=== PATIENT | male | born 1985 | race Caucasian/White ===

== ENCOUNTER 2016-05-15 16:17 | Emergency (ER) | payer OTHER ==
[~2016-05-15 16:17] MED LIST: TRAM50TA2 PO
[2016-05-15 16:19] VITALS: BP 117/75; PULSE 101; RESP 18; O2SAT 99
--- NOTE | 2016-05-15 16:28 | ED.REPORT ---
HPI-Back Pain Under 40 Date of Service May 15, 2016 ED Provider: Armando Sahu MD Pt is a 31 y/o male presenting to the ED c/o lumbar back pain without radiation onset today. He states he has prior L2-L3 back issues caused primarily by an old football injury which have caused him pain in the past although he has not had an MRI performed. 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 He denies any traumatic injury. Pt denies bowel or bladder incontinence, weakness or numbness of his legs, fever. He is requesting an x-ray at this time. Nursing Notes Stated Complaint: LOW BACK PAIN Chief Complaint: Back Pain or Injury Nursing Notes Reviewed: Yes Allergies: Coded Allergies: coconut (Verified Allergy, Severe, Anaphylaxis, 05/15/16) Scheduled PRN Cyclobenzaprine (Cyclobenzaprine) 5 Mg Tablet 5 MG PO HS PRN PRN Spasm Hydrocodone-Acetaminophen 5-325 mg (Hydrocodone-Acetaminophen 5-325 mg) 1 Each Tablet 1 TABLET PO Q4H PRN PRN For Pain Ibuprofen (Ibuprofen) 800 Mg Tablet 800 MG PO TID PRN PRN For Pain Tramadol (Tramadol) 50 Mg Tablet 50 MG PO QID PRN PRN For Pain General Time Seen by MD: 16:24 Chief Complaint Lumbar pain Hx Obtained From: Patient Arrived By: Walk-in Sudden in Onset?: No Onset Occurred: 5 - 8 hours ago Symptom Duration: Since onset Caused by: Aggravated old injury Location: : Perispinal lumbar Quality: Painful Severity: Current: Moderate Severity: Maximum: Moderate Recent Healthcare: Previous diagnosis Similar Sx Previous: Yes Past Medical History Past Medical History Chlamydia 2x L2-L3 back pain Past Surgical History Denies Smoking History Current Every Day Smoker Social History Drug Use: Meth, THC Other Social History: Poor social support Ambulatory Status Independent Review of Systems Constitutional: Denies: Chills, Fever Musculoskeletal: Reports: Lumbar pain Neurologic: Denies: Bladder dysfunction, Bowel dysfunction, Numbness, Weakness Complete sys rev & neg: except as marked. Physical Exam Initial Vital Signs Vital Signs (First) Date Time Temp Pulse Resp B/P Pulse Ox O2 Delivery O2 Flow Rate FiO2 05/15/16 16:19 37.3 101 18 117/75 99 Room Air Initial VS: Reviewed, Vital signs abnormal Head / Eyes: Atraumatic, Normocephalic, PERRL ENT: Mucous membranes moist, Conjunctiva normal, No scleral icterus Neck: Supple, Full range of motion Skin: Warm, Dry, No cyanosis Psychiatric: Mood/affect normal, Behavior normal, Normal thought content General/Constitutional: Awake, Alert, No acute distress Back: Full range of motion, Painless range of motion, No midline vertebral tend Diffuse low back tenderness Neurologic: Oriented X3, Speech NL, No motor deficits, No sensory deficits, CN II - XII intact, Cerebellar NL, Memory NL, Gait NL Interpretation & Diagnostics X-Ray Interpretation Xray Interpretation: Negative Study Performed: Lumbar spine 3 views Interpretation / Wet Read by: Wet read ED physician Re-Eval/Medical Decision Med Decision/Clinical Course 31-year-old male with chronic low back pain presenting complaining of typical low back pain for him that started one week ago. Reports this started after heavy lifting. Denies any trauma. No red flag symptoms. X-rays no evidence acute pathology on my wet read. Patient was given one shot of Toradol. He is advised to follow-up with his primary doctor. I have given him muscle relaxers and pain medications. He will follow up with primary doctor at [facility]. Return precautions given. Re-Evaluation/Progress : Time of Eval: 17:42 Patient Status: Condition improved, Moderate relief, Pain improved Re-Evaluation/Progress Note: Pt rechecked. Informed pt of plan for treatment. Pt understands and agrees with plan for treatment. F/U and RTER warnings given. All questions addressed. Counseled Regarding: Diagnosis, Need for follow-up, When/why to return to ED Discharge & Departure Impression: Primary Impression: Back strain Encounter type: initial encounter Qualified Code: S39.012A - Strain of muscle, fascia and tendon of lower back, initial encounter Disposition: Home All VS Reviewed: Yes Condition: Stable Patient Instructions: Low Back Strain (ED), Acute Low Back Pain (ED) Additional Instructions: Your back x-ray today was normal. I believe you are experiencing back muscle spasms. Take 800 mg Ibuprofen every 8 hours as needed for aching pain. Take Cyclobenzaprine as needed for muscle spasm. Take Hydrocodone every 4 hours as needed for severe breakthrough pain. This medication causes constipation and drowsiness. Do not drink alcohol after taking it. Return to the emergency department if you develop severe uncontrolled pain, bowel or bladder incontinence, numbness or loss of strength of your legs, high fever, or for other concerning symptoms. Follow-up with a primary care doctor in 2 days if symptoms persist. An MRI may be considered at that time. Referrals: [facility] Scribe Attestation Portions of this note were transcribed by Brigido Black. I, Dr. Sahu personally performed the history, physical exam and medical decision-making; I reviewed and confirmed the accuracy of the information in the transcribed note. Signed by Hardik Luis, 05/15/16 - 1700 Armando Sahu MD May 15, 2016 16:28 BRIGIDO BLACK May 15, 2016 16:35
[2016-05-15] MEDS ORDERED: CYCL5TAB PO (16:39)
[2016-05-15] MEDS ORDERED: HYDR-4003 PO (16:39)
[2016-05-15] MEDS ORDERED: IBUP800T28 PO (16:39)
[2016-05-15] MEDS ORDERED: Ketorolac 30 mg/mL 2 mL Inj IM ONE (16:40)
[2016-05-15 17:52] VITALS: BP 114/71; PULSE 98; RESP 16; O2SAT 99
--- NOTE | 2016-05-15 17:59 | DRSVH ---
PROCEDURE: X-RAY LUMBAR SPINE, 2 OR 3 VIEW INDICATIONS: Lumbar pain midline h/o previous injury TECHNIQUE: 3 views of the lumbar spine were acquired. COMPARISON: None. FINDINGS: Bones: 5 [id number] vertebrae are present. There is normal bony alignment. There is loss of nor mal lumbar lordosis however. Disc spaces are thought to be well-maintained. Posterior elements are in tact. No vertebral body compression fractures. No suspicious bony lesions. Soft tissues: Overlying bowel gas pattern is normal. No suspicious soft tissue calcifications. IMPRESSION: Loss of normal lumbar lordosis otherwise no abnormality is seen in the lumbar spine x-ray s. Dictated by: Karthik Oscar M.D. on 05/15/2016 at 17:57 Approved by: Karthik Oscar M.D. on 05/15/2016 at 17:58
== END 2016-05-15 17:53 | disposition home or self-care (01) ==
LOC: SED 16:17
DX: S39.012A Strain of muscle, fascia and tendon of lower back, initial encounter (principal); X50.0XXA Overexertion from strenuous movement or load, initial encounter; Y93.89 Activity, other specified; Y92.9 Unspecified place or not applicable; Y99.8 Other external cause status; F17.200 Nicotine dependence, unspecified, uncomplicated; Z87.828 Personal history of other (healed) physical injury and trauma
CPT/HCPCS: 72100; 96372; 99284; J1885